=== PATIENT | female | born 1980 | race African-American/Black ===

== ENCOUNTER 2019-03-03 18:51 | Emergency (ER) | payer MEDICAID ==
[~2019-03-03] VITALS: Ht 165.1 cm; Wt 68.3 kg
[~2019-03-03 18:51] MED LIST: PARO10TA87 PO; PHEN100C4 PO; QUET200T PO
[2019-03-03] MEDS ORDERED: PHENYTOIN SODIUM EXTENDED 100MG CAPSULE PO ONE (20:00)
[2019-03-03 20:13] VITALS: BP 129/75
== END 2019-03-03 20:13 | disposition home or self-care (01) ==
LOC: ER 18:51
DX: Z76.0 Encounter for issue of repeat prescription (principal); G40.909 Epilepsy, unspecified, not intractable, without status epilepticus; F14.10 Cocaine abuse, uncomplicated; F10.10 Alcohol abuse, uncomplicated; F12.90 Cannabis use, unspecified, uncomplicated; Y90.9 Presence of alcohol in blood, level not specified; R03.0 Elevated blood-pressure reading, without diagnosis of hypertension; Z63.4 Disappearance and death of family member; F17.210 Nicotine dependence, cigarettes, uncomplicated; Z88.0 Allergy status to penicillin; Z88.6 Allergy status to analgesic agent; Z88.8 Allergy status to other drugs, medicaments and biological substances
CPT/HCPCS: 99283

== ENCOUNTER 2019-05-08 02:41 | Emergency (ER) | payer MEDICAID ==
[~2019-05-08] VITALS: Ht 160 cm; Wt 66.3 kg
[2019-05-08 05:07] VITALS: BP 94/37
== END 2019-05-08 05:08 | disposition home or self-care (01) ==
LOC: ER 03:07
DX: G40.909 Epilepsy, unspecified, not intractable, without status epilepticus (principal); J44.9 Chronic obstructive pulmonary disease, unspecified; Z98.890 Other specified postprocedural states; Z90.710 Acquired absence of both cervix and uterus; F17.200 Nicotine dependence, unspecified, uncomplicated; F12.10 Cannabis abuse, uncomplicated; Z88.0 Allergy status to penicillin; Z88.6 Allergy status to analgesic agent; Z79.899 Other long term (current) drug therapy
CPT/HCPCS: 99283

== ENCOUNTER 2019-08-13 09:19 | Emergency (ER) | payer SELFPAY ==
[~2019-08-13] VITALS: Ht 167.6 cm; Wt 55.0 kg
[2019-08-13] MEDS ORDERED: IPRATROPIUM BROMIDE (0.02%) 0.5MG/2.5ML NEB HHN STA (09:42)
[2019-08-13] MEDS ORDERED: ALBUTEROL (0.083%) 2.5MG/3ML NEB HHN STA (09:42)
[2019-08-13] MEDS ORDERED: MAGNESIUM 2 G PREMIX 50 ML IV ONE (09:45)
[2019-08-13] MEDS ORDERED: DEXAMETHASONE 4MG/ML 1ML VIAL IV ONE (09:45)
[2019-08-13 10:19] LABS: BASOPHILS % 0.5 % (0.0-2.0); EOSINOPHILS % 2.1 % (0.0-5.0); HEMATOCRIT. 38.9 % (36.0-48.0); HEMOGLOBIN. 12.7 g/dL (12.0-16.0); LYMPHOCYTES % 19.5 % (20.0-50.0); MEAN CORPUSCULAR HEMOGLOBIN 29.6 pg (28.0-32.0); MEAN CORPUSCULAR VOLUME 90.5 fL (81.0-99.0); MEAN PLATELET VOLUME 9.5 fl (7.4-10.4); NEUTROPHILS % 68.9 % (40.0-76.0); PLATELET 314 x1000/uL (130-400)
[2019-08-13 10:25] LABS: CHLORIDE 110 mEq/L (98-107)
[2019-08-13 10:35] LABS: HCG SCREEN NEGATIVE
[2019-08-13 10:41] LABS: ETHANOL BLOOD < 10 mg/dL
[2019-08-13] MEDS ORDERED: AZITHROMYCIN 500 MG TABLET PO ONE (13:00)
[2019-08-13 14:41] VITALS: BP 132/80
[2019-08-21 15:06] LABS: BARBITURATE SCREEN Negative ug/mL (Cutoff:0.1); BENZODIAZEPINE SCREEN Negative ng/mL (Cutoff:20); OPIATES SCREEN Negative ng/mL (Cutoff:5); PHENCYCLIDINE SCREEN Negative ng/mL (Cutoff:8)
== END 2019-08-13 14:44 | disposition home or self-care (01) ==
LOC: ER 09:35
DX: J44.1 Chronic obstructive pulmonary disease with (acute) exacerbation (principal); G40.909 Epilepsy, unspecified, not intractable, without status epilepticus; F17.210 Nicotine dependence, cigarettes, uncomplicated; Z71.6 Tobacco abuse counseling
CPT/HCPCS: 36415; 71045; 80048; 80307; 80320; 81025; 84484; 84703; 85025; 93005; 94640; 96365; 96375; 99284; J1100; J3475; J7611; Z7610; G0480